=== PATIENT | female | born 2000 | race Caucasian/White ===

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

== ENCOUNTER 2020-08-24 20:53 | Outpatient (CLI) | payer OTHER ==
[~2020-08-24] VITALS: Ht 172.7 cm; Wt 83.3 kg
[2020-08-24 21:18] VITALS: BP 133/80
[2020-08-24] MEDS ORDERED: PRENTAB9 PO (21:21)
--- NOTE | 2020-08-24 21:50 | IPNPDOC ---
Obstetrical Progress Note Date of Service Aug 24, 2020 Subjective 19yo at 32+5 presents for clear vaginal discharge since this morning, she had intercourse this morning. Denied pruritis, odors, burning. Denied contractions, VB, decreased FM. Denied n/v/d, cp, sob, zayas, visual changes, f/c, urinary sx. Objective Vital Signs Date Time Temp Pulse Resp B/P (MAP) Pulse Ox O2 Delivery O2 Flow Rate FiO2 08/24/20 21:18 97.9 86 16 133/80 (97) Assessment Heart Rate (FHR): 140 Variability: Moderate Accelerations: Positive Decelerations: None Heart Rate Tracing: Category I Tocometer Contractions: Yes Frequency: irregular Sterile Vaginal Examination Dilation: 1cm Effacement (%): 50% Station: -3 Cervical Consistency: Medium Cervical Position: Middle Postion/Presentation: Cephalic presentation (by US) Assessment and Plan Additional Comments 19yo at 32+5 presents for clear vaginal discharge today, she had inte rcourse this morning. VS normal. CAT I tracing without contractions. Exam with negative pooling, ferning, MARIELLA, WP. G/C negative. UA WNL. SVE /-3 and unchanged on 2h recheck. ROM and labor unlikely at this time. Suspect discharge is semen. - Routine OB return precautions given - patient to follow up at next MARÍA Valladares DO Aug 24, 2020 21:50
[2020-08-24 22:10] LABS: APPEARANCE, URINE HAZY (CLEAR); BACTERIA, URINE AUTO 1+ (NEGATIVE); BILIRUBIN, URINE AUTO NEGATIVE (NEGATIVE); BLOOD, URINE BLOOD NEGATIVE (NEGATIVE); COLOR, URINE YELLOW (YELLOW); GLUCOSE, URINE (UA) AUTO NEGATIVE (NEGATIVE); KETONE, URINE AUTO NEGATIVE (NEGATIVE); LEUKOCYTE ESTERASE, URINE AUTO 3+ (NEGATIVE); MUCUS, URINE SMALL (NEGATIVE); NITRITE, URINE AUTO NEGATIVE (NEGATIVE); PROTEIN, URINE AUTO NEGATIVE (NEGATIVE); RBC, URINE AUTO 2 /HPF (0-3); SPECIFIC GRAVITY URINE AUTO 1.011 (1.002-1.035); SQUAMOUS EPITHELIAL CELL UR AU 7 /HPF (0-6); WBC, URINE AUTO 36 /HPF (0-3)
[2020-08-24 22:53] VITALS: BP 122/75
[2020-08-25 00:42] VITALS: BP 123/64
== END 2020-08-25 01:17 | disposition home or self-care (01) ==
LOC: M LDO 20:53
PROVIDERS: ATTEND Obstetrics & Gynecology
DX: O36.8130 Decreased fetal movements, third trimester, not applicable or unspecified (principal); O26.893 Other specified pregnancy related conditions, third trimester; N89.8 Other specified noninflammatory disorders of vagina; Z3A.32 32 weeks gestation of pregnancy
CPT/HCPCS: 59025; 81001; 87086; 87490; 87590; 87661; G0378; G0463

== ENCOUNTER 2020-08-29 08:28 | Inpatient (IN) | payer OTHER ==
[2020-08-29] VITALS (18 sets, daily range): BP systolic 118–183; BP diastolic 56–100
[~2020-08-29] VITALS: Ht 174 cm; Wt 89.3 kg
[~2020-08-29 08:28] MED LIST: PRENTAB9 PO
[2020-08-29] MEDS ORDERED: ACET-897 PO (08:42)
[2020-08-29] MEDS ORDERED: TUMS750C5 PO (08:42)
[2020-08-29] MEDS ORDERED: CALCIUM GLUCONATE 1,000 MG in D5W MINI-BAG PLUS 100 ML IV PRN (09:45)
[2020-08-29] MEDS ORDERED: MAG Sulf (L&D) 4 GM/100 ML 4 GM in IV 1 EA IV ONE (09:45)
[2020-08-29] MEDS ORDERED: PENICILLIN G POTASSIUM IV 5 MU in D5W MINI-BAG PLUS 100 ML IV ONE (09:45)
[2020-08-29] MEDS ORDERED: BETAMETHASONE SOLUSPAN 6MG/ML 5ML VIAL (J0702 PER 3MG) IM SCH (10:00)
[2020-08-29] MEDS ORDERED: MAG Sulf (OBGYN) 20GM/500ML 20,000 MG in IV 1 EA IV SCH (10:01)
[2020-08-29] MEDS: LR 1,000 ML IV SCH ×2 (10:14→10:46)
[2020-08-29 10:26] LABS: BASO # 0.1 10^3/uL (0.0-0.2); BASO % 0.3 % (0.0-1.0); EOS # 0.1 10^3/uL (0.0-0.5); EOS % 0.3 % (0.0-3.0); HEMATOCRIT 39.5 % (36.0-47.0); HEMOGLOBIN 13.7 g/dl (12.0-15.5); LYMPH # 1.3 10^3/uL (1.5-5.0); LYMPH % 6.8 % (24.0-44.0); MEAN CORPUSCULAR HEMOGLOBIN 30.6 pg (27.0-33.0); MEAN CORPUSCULAR HGB CONC 34.7 g/dl (32.0-36.5); MEAN CORPUSCULAR VOLUME 88.4 fl (80.0-96.0); MONO # 1.8 10^3/uL (0.0-0.8); MONO % 9.4 % (2.0-8.0); NEUTROPHILS % 81.6 % (36.0-66.0); PLATELET COUNT, AUTOMATED 212 10^3/uL (150-450); RED BLOOD COUNT 4.47 10^6/uL (4.00-5.40); WHITE BLOOD COUNT 19.6 10^3/uL (4.0-10.0)
[2020-08-29 10:27] LABS: APPEARANCE, URINE TURBID (CLEAR); BACTERIA, URINE AUTO 1+ (NEGATIVE); BILIRUBIN, URINE AUTO NEGATIVE (NEGATIVE); BLOOD, URINE BLOOD 2+ (NEGATIVE); COLOR, URINE AMBER (YELLOW); GLUCOSE, URINE (UA) AUTO NEGATIVE (NEGATIVE); KETONE, URINE AUTO NEGATIVE (NEGATIVE); LEUKOCYTE ESTERASE, URINE AUTO 3+ (NEGATIVE); NITRITE, URINE AUTO NEGATIVE (NEGATIVE); PROTEIN, URINE AUTO 1+ mg/dL (NEGATIVE); RBC, URINE AUTO 44 /HPF (0-3); SPECIFIC GRAVITY URINE AUTO 1.021 (1.002-1.035); SQUAMOUS EPITHELIAL CELL UR AU 26 /HPF (0-6); WBC, URINE AUTO 76 /HPF (0-3)
--- NOTE | 2020-08-29 10:43 | HPEPDOC ---
Obstetrical History & Physical General Date of Admission Aug 29, 2020 at 09:45 History of Present Illness 19yo BRENDEN [id number] @33+2, presenting to triage with c/o contractions every 10 min since yesterday, loss of mucous plug and vaginal spotting. Denies LOF, states reassuring FM. Chief Complaint: Contractions, pre-term (contractions began q10 min), Vaginal Bleeding (spotting since this AM) Information Provided By: Patient Age: 19 : 1 Term: 0 Pre-term: 0 Abortions: 0 Livin Care Care: Good Care Dating Final EDC: Oct 15, 2020 Final EDC for Daily Update: Oct 15, 2020 Final EDC by: LMP LMP: Jan 09, 2020 1st Trimester Date: Mar 20, 2020 Weeks + Days: 10 (+1) Estimated Date of Confinement: Oct 15, 2020 EGA at Admission: 33 (+2) Antepartum Course Diagnos(e)s EPDS 16/30 in , PPD risk Height (inches): 68 Pre- weight (lbs.): 160 Admission Weight (lbs.): 184 Change in Weight (lbs.): 24 Past Medical History Past Obstetrical History : Past Obstetrical History: Primgravida [employer] History: Ovarian cysts Past Medical History Medical History denies Surgical History: Danielson teeth Family History Significant Family History: Cancer (MGF- agent orange; pgm- breast cancer), Diabetes (mgm) Social History Marital Status: Family situation: Spouse/partner home Psychosocial History: Other (denies hi) * Smoker: non-smoker Alcohol: Denies Drugs: denies Abuse Violence Screening Have you been hit/kicked/slapp: No Have you been sexually assault: No Imunizations Tdap status: current Allergies Coded Allergies: No Known Allergies (Unverified , 08/24/20) Medications Scheduled No.137/Iron/Folic Acd ( Vitamin Tablet) 1 Each Tablet, 1 TAB PO DAILY Scheduled PRN Acetaminophen (Tylenol Extra Strength) 500 Mg Tablet, 1-2 TABS PO Q6HP PRN for pain Calcium Carbonate (Tums) 300 Mg Tab.chew, 1-2 TABS PO Q6HP PRN for INDIGESTION Physical Examination Physical Examination GENERAL: Alert and oriented times three. BREAST: . ABDOMEN: Gravid and non-tender to touch. FETUS: Is vertex (VTX) by sterile vaginal examination (SVE), fetus is vertex (VTX) by Guevara. HEART RATE: Regular rate and rhythm. LUNGS: Clear to auscultation (CTA). EXTREMITIES: No edema. No clonus. Deep tendon reflexes (DTRs) + 2. Vital Signs/I&O Vital Signs Date Time Temp Pulse Resp B/P (MAP) Pulse Ox O2 Delivery O2 Flow Rate FiO2 08/29/20 08:36 97.5 104 20 136/80 (98) 98 Room Air Pertinent Laboratoy Data Blood Type: O+ RBC Antibody Screen: Negative HIV: Negative Hepatitis B: Negative Rapid Plasma Reagin: Immune Rubella: Immune Varicella: Immune Chlamydia/Gonorrhea: Negative Group B Streptococcus: Unknown Cystic Fibrosis: Negative Glucose Tolerance Test: 118 Anatomy Ultrasound Placenta Location: Anterior Normal Anatomy: Yes Steroid Therapy Steroid Therapy: Yes Date #1: Aug 29, 2020 Vaginal Examination Dilation: 5 cm Effacement: 100% Station: -2 Cervical Consistency: Soft Cervical Position: Middle Presentation: Cephalic presentation Assessment Heart Rate (FHR): 120 Variability: Moderate Accelerations: Positive Decelerations: None Tocometer Contractions: Yes Frequency: every 2-5 min. Duration: less than 60 seconds Strength: palpated as moderate, resting tone palp/soft Multi-drug resistant Organism: No history of MDRO Assessment/Plan Assessment Valencia is a 19-year-old (G)1 para (P)0 at 33+2 weeks by LMP and 10+1-week ultrasound. Presents to Labor and Delivery (L&D) for c/o contractions and loss of mucous plug with spotting. Plan Admit and orient. 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 Diet: clear liquids. Group B Streptococcus (GBS) unknown, swab sent and prophylactic antibiotics ordered. Labs and intravenous (IV) per unit protocol including GC/CT, GBS, UA with culture, HIV, type and screen, CBC. Counseled on Magnesium for neuroprotection and Betamethasone for lung maturity. Walters catheter to gravity. Lactated Ringers (LR): Bolus 1000 mL, then at 125 mL/hr. Anticipate spontaneous vaginal delivery. Consult NICU and OB business continuity consultant. May have epidural anesthesia as desired. C-S as appropriate. KAVYA MONACO CNM Aug 29, 2020 10:43
[2020-08-29] MEDS ORDERED: ONDANSETRON 4MG/2ML VIAL IV PRN ×2 (10:45→14:00)
[2020-08-29] MEDS ORDERED: BUTORPHANOL 2 MG/ML INJ (J0595) IV ONE (11:00)
[2020-08-29] MEDS ORDERED: FENTANYL 2MCG/ML ROPIVACAINE 0.2% IN 0.9% NACL 100ML IVBAG As Ordered ONE (11:23)
--- NOTE | 2020-08-29 11:28 | IPNPDOC ---
Obstetrical Progress Note Date of Service Aug 29, 2020 Subjective Pt c/o increased pain and pressure with contractions Objective Vital Signs Date Time Temp Pulse Resp B/P (MAP) Pulse Ox O2 Delivery O2 Flow Rate FiO2 08/29/20 08:36 97.5 104 20 136/80 (98) 98 Room Air Assessment Heart Rate (FHR): 120 Variability: Moderate Accelerations: Positive Decelerations: None Heart Rate Tracing: Category I Tocometer Contractions: Yes Frequency: every 2-2 min. Duration: greater than 60 seconds Strength: palpated as moderate, resting tone palp/soft Sterile Vaginal Examination Dilation: 7 cm (BBOW) Effacement (%): 100% Station: -1 Cervical Consistency: Soft Cervical Position: Middle Postion/Presentation: Cephalic presentation Assessment and Plan Age: 19 : 1 Term: 0 Pre-term: 0 Abortions: 0 Livin EGA at Admission: 33 (+2) Status: Reassuring Group B Streptococcus: Unknown Anticipate: Vaginal Delivery Additional Comments Pt may have epidural as desired, lr @125ml/hr, continue magnesium infusion, gbs prophylaxis, continuous efm x2, monitor for change in or maternal status, anticipate vaginal delivery KAVYA MONACO CNM Aug 29, 2020 11:28
[2020-08-29] MEDS ORDERED: OXYTOCIN 30 UNITS IN 0.9% NaCl 500ML IV BAG (J2590) As Ordered ONE (12:26)
[2020-08-29 12:42] LABS: CORD GAS HCO3 V 17.4 MEQ/L; CORD GAS O2 SAT V 39.1 %; CORD GAS PH V 7.134 UNITS; CORD GAS PO2 V 21.3 mmHg; CORD GAS SBC V 14.1 MEQ/L
[2020-08-29 12:42] LABS: CORD GAS ABE A -12.8; CORD GAS HCO3 A 17.6 MEQ/L; CORD GAS O2 SAT A 26.8 %; CORD GAS PCO2 A 58.5 mmHg; CORD GAS PH A 7.095 UNITS; CORD GAS PO2 A 17.8 mmHg; CORD GAS SBC A 13.3 MEQ/L; CORD GAS TCO2 A 19.3 MEQ/L
[2020-08-29] MEDS ORDERED: OXYTOCIN DRIP 30 UNITS in IV 1 EA IV SCH (12:44)
[2020-08-29] MEDS ORDERED: METHYLERGONOVINE MALEATE 0.2 MG TAB PO PRN (12:45)
[2020-08-29] MEDS ORDERED: DOCUSATE SODIUM 100MG CAPSULE PO PRN (12:45)
[2020-08-29] MEDS ORDERED: RHOGAM 300 MCG (1500 IU) INJ (J2790) IM SCH (12:45)
[2020-08-29] MEDS ORDERED: DIBUCAINE 1% OINTMENT 30GM TOP PRN (12:45)
--- NOTE | 2020-08-29 13:09 | DNPDOC ---
[facility] Delivery Note Delivery Note DATE OF DELIVERY: 29Aug2020 PREDELIVERY DIAGNOSIS: 33-2/7 weeks' gestation and labor. POST DELIVERY DIAGNOSIS: Delivered. PROCEDURE: Spontaneous vaginal delivery. CREATIVE SERVICES DIRECTOR: Gabriela Monaco CNM ANESTHESIA: epidural. ESTIMATED BLOOD LOSS: 400 mL. FINDINGS: 4 pound 11 ounce male infant Johnny, Score 6/9, no nuchal cord. DELIVERY SUMMARY: Patient is a 19-year-old 1 now para 1 who was admitted to labor and delivery for labor on 29Aug2020. Pt c/o feeling urge to push after repositioning after epidural anesthesia. Cervical exam C/C/0 with BBOW, which SROM clear after pt began uncontrollably pushing with contractions. Pt made brisk decent with strong pushing efforts. The head delivered in OA with restitution to BRAEDEN. Right anterior shoulder delivered followed easily by the posterior shoulder and corpus. The was placed immediately on the maternal abdomen. The cord was clamped x 2, cut and the infant passed off to the waiting NICU team for evaluation. Cord gasses were collected x2 and cord blood collected and sent for testing. Magnesium infusion was discontinued and pitocin initiated per protocol. The placenta delivered spontaneously intact in Tobias presentation with moderate bleeding. The cervix was swept for a small clot and the fundus massaged until firm. The mother was able to hold the before he was transferred to the NICU. Examination revealed an intact perineum and hemostatic bilateral labial abrasions. The right labial laceration was reapproximated with 4-0 vicryl on sh in the usual fashion. Mother entered the recovery phase in stable condition. GABRIELA MONACO CNM Aug 29, 2020 13:09
[2020-08-29] MEDS ORDERED: EPIDURAL/PCA KEYS XX PRN (14:00)
[2020-08-29] MEDS ORDERED: ePHEDrine SULFATE 25 MG/5 ML(5MG/ML) SYRINGE IV PRN (14:00)
[2020-08-29] MEDS ORDERED: EPIDURAL COMMENT XX SCH (14:00)
[2020-08-29] MEDS ORDERED: NALOXONE INJ 0.4MG/1ML VIAL (J2310 PER 1MG) IV PRN (14:00)
[2020-08-29] MEDS ORDERED: REFRIGERATOR IV KEYS XX PRN (14:00)
[2020-08-29] MEDS ORDERED: diphenhydrAMINE 50MG/ML VIAL (J1200) IV PRN (14:00)
[2020-08-29] MEDS ORDERED: PENICILLIN G POTASSIUM IV 2.5 MU in IV 1 EA IV SCH (14:00)
[2020-08-29] MEDS ORDERED: LACTATED RINGER'S 1000 ML IV PRN (14:00)
[2020-08-29] MEDS ORDERED: FENTANYL/ROPIVACAINE/NACL BAG 100 ML EPIDURAL SCH (14:00)
[2020-08-29] MEDS ORDERED: SLF 3 ML SYR IV PRN (15:00)
[2020-08-29] MEDS: IBUPROFEN 800 MG TAB PO PRN (15:44)
[2020-08-29] MEDS: SLF 3 ML SYR IV SCH (22:25)
[2020-08-30 05:57] VITALS: BP 112/58
[2020-08-30] MEDS: SLF 3 ML SYR IV SCH ×2 (06:47→13:05)
[2020-08-30] MEDS: IBUPROFEN 800 MG TAB PO PRN (06:48)
[2020-08-30 08:48] LABS: CHLAMYDIA DNA AMPLIFICATION NEGATIVE (NEGATIVE); GC DNA AMPLIFICATION NEGATIVE (NEGATIVE)
[2020-08-30] MEDS: PRENATAL VITAMINS CHEWABLE TABLET PO SCH (08:55)
[2020-08-30] MEDS: ACETAMINOPHEN TAB 650MG DOSE (2X325MG) PO PRN ×2 (08:56→14:04)
[2020-08-30] MEDS ORDERED: PRENATAL VITAMINS CHEWABLE TABLET PO SCH (09:00)
--- NOTE | 2020-08-30 10:50 | IPN ---
PROGRESS NOTE DATE: 08/30/2020 SUBJECTIVE: This lady is a 19-year-old, 1, para 0, whose BRENDEN was October 15, 2020, admitted at 33 and 2 weeks of gestation donte 3 to 5 minutes apart moderate intensity. On examination, vertex presenting, 100% effaced, 5 cm, -2 station. This lady was admitted in active labor. She was given prophylactic antibiotics for GBS; status unknown. Attempted the start of neuroprotection with Mag Sulfate. Walters catheter and epidural in place. She rapidly progressed and had a spontaneous vaginal delivery of a live male infant, 4 pounds 11 ounces, Apgars of 6 and 9 in one and five minutes respectively. Arterial pH 7.09, base excess -12.8. Venous pH 7.13, base excess -12.0. On her first day, we discussed phlebitis, cystitis, mastitis, endometritis, cellulitis, diet, exercise, pain management and perineal care. Presently, the baby is the NICU for growing. Baby will be here approximately two weeks. Mother is planning on pumping. Meds to be dispensed at [place]. Plans are that she can visit daily for the baby and the father can come in once a day. Patient will bring milk upon arrival. PHYSICAL EXAMINATION: On examination today, blood pressure 112/58, respirations 17, pulse 78, temperature 99.1. The rest of the examination unremarkable. Normocephalic, atraumatic. Neck full range of motion. Pupils equal and reactive to light. Distal pulses symmetric. No evidence of DVT, PE or superficial phlebitis. Chest was clear bilaterally to bases. No wheezes or rhonchi. No CVA tenderness. Abdomen was soft, four quadrant bowel sounds are noted. Uterus 2 below. No rashes, lesions or pruritis. No arthralgia, myalgia. No complaint of joint pain. No complaint of cough, wheeze, shortness of breath or dyspnea on exertion. No nausea, vomiting, diarrhea or constipation. No urgency or frequency. LABORATORY DATA: Admitting hemoglobin 13.7, hematocrit 39.5, platelets 212,000. IN SUMMARY: We have a pre-termer who delivered a live male infant in stable condition. Plans are for discharge tomorrow. Breast pump script was given. Discharge instructions were given.
[2020-08-30 17:58] VITALS: BP 135/67
[2020-08-31 06:09] VITALS: BP 127/60
[2020-08-31] MEDS ORDERED: IBUP80TA PO (07:17)
[2020-08-31] MEDS ORDERED: DIBU10OI TOP (07:17)
--- NOTE | 2020-08-31 07:21 | DS.PDOC ---
Discharge Summary General Date of Admission Aug 29, 2020 at 09:45 Date of Discharge Aug 31, 2020 Discharge Summary HOSPITAL COURSE: Ms. Duarte is a 19 yo G1 now P1 who underwent an uncomplicated, spontaneous, of a 33 week infant on 29Aug2020 after being admitted for active labor. Her course was unremarkable. On her day of discharge she met all appropriate discharge criteria. She was ambul ating, voiding, tolerating a regular diet, and had minimal lochia. remains in the NICU and is stable. DISCHARGE MEDICATIONS: Please see below. ALLERGIES: Please see below. PHYSICAL EXAMINATION ON DISCHARGE: VITAL SIGNS: Please see below. GENERAL: AAOX3, NAD ABDOMINAL EXAMINATION: Fundus firm at U-2. No fundal tenderness EXTREMITIES: No edema PSYCHIATRIC EXAMINATION: Affect appropriate LABORATORY DATA: Please see below. ACTIVITY: Pelvic rest for 6 weeks DIET: Regular DISCHARGE PLAN: Discharge home DISPOSITION: Discharge home on 31Aug2020. DISCHARGE INSTRUCTIONS: 1. Nothing in the vagina for 6 weeks ITEMS TO FOLLOWUP ON ON OUTPATIENT: 1. Call to schedule a visit for 6 weeks post delivery 2. draft roller picker meds DISCHARGE CONDITION: Stable. TIME SPENT ON DISCHARGE: Greater than 20 minutes. Supa [place], Vital Signs/I&Os Vital Signs Date Time Temp Pulse Resp B/P (MAP) Pulse Ox O2 Delivery O2 Flow Rate FiO2 08/31/20 06:09 97.2 79 16 127/60 (82) 08/30/20 17:58 97 08/30/20 05:57 Room Air Microbiology Microbiology 08/29/20 Group B Streptococcus Screen ([facility]ORA), Worksheet Pending 08/29/20 Urine Culture - Final, Complete Discharge Medications Scheduled No.137/Iron/Folic Acd ( Vitamin Tablet) 1 Each Tablet, 1 TAB PO DAILY, (Reported) Scheduled PRN Acetaminophen (Tylenol Extra Strength) 500 Mg Tablet, 1-2 TABS PO Q6HP PRN for pain, (Reported) Calcium Carbonate (Tums) 300 Mg Tab.chew, 1-2 TABS PO Q6HP PRN for INDIGESTION, (Reported) Dibucaine (Dibucaine) 28 Gm Oint...g., 0 DOSE TOP Q4H PRN for PAIN Ibuprofen (Ibuprofen) 800 Mg Tablet, 800 MG PO Q8HP PRN for PAIN LEVEL 6-10 Allergies Coded Allergies: No Known Allergies (Unverified , 08/24/20) SUPA STOCKTON DO Aug 31, 2020 07:21
[2020-08-31 07:50] VITALS: BP 127/60
[2020-08-31] MEDS: PRENATAL VITAMINS CHEWABLE TABLET PO SCH (08:07)
[2020-08-31] MEDS: IBUPROFEN 800 MG TAB PO PRN (08:08)
== END 2020-08-31 12:35 | disposition home or self-care (01) | DRG 807 ==
LOC: M LDO 08:28 → M LDI 09:45 → M OBS 16:15
PROVIDERS: ADMIT Registered Nurse; ATTEND Registered Nurse
PROC: 10E0XZZ Delivery of Products of Conception, External Approach (ICD-10-PCS; principal; 2020-08-29)
PROC: 0HQ9XZZ Repair Perineum Skin, External Approach (ICD-10-PCS; 2020-08-29)
DX: O60.14X0 Preterm labor third trimester with preterm delivery third trimester, not applicable or unspecified (principal); Z37.0 Single live birth; Z3A.33 33 weeks gestation of pregnancy; O99.824 Streptococcus B carrier state complicating childbirth; O70.0 First degree perineal laceration during delivery